=== PATIENT | female | born 1980 | race Caucasian/White ===

== ENCOUNTER 2016-10-25 11:56 | Emergency (ER) | payer OTHER ==
[2016-10-25] MEDS ORDERED: DILAUDID 1 MG/ML AMP ONE ×2 (12:28→14:06)
[2016-10-25] MEDS ORDERED: KETOROLAC 30 MG/ML VIAL ONE (12:28)
[2016-10-25] MEDS ORDERED: ORPHENADRINE 60 MG/2 ML AMP ONE (12:28)
[2016-10-25] MEDS ORDERED: ONDANSETRON 4 MG VIAL ONE (12:28)
== END 2016-10-25 14:57 | disposition home or self-care (01) ==
LOC: FASTR 11:56
DX: S39.012A Strain of muscle, fascia and tendon of lower back, initial encounter (principal); S29.012A Strain of muscle and tendon of back wall of thorax, initial encounter; W18.30XA Fall on same level, unspecified, initial encounter; Y93.E1 Activity, personal bathing and showering; Y92.002 Bathroom of unspecified non-institutional (private) residence as the place of occurrence of the external cause; S30.0XXA Contusion of lower back and pelvis, initial encounter; M51.34 Other intervertebral disc degeneration, thoracic region; Z79.3 Long term (current) use of hormonal contraceptives; F17.210 Nicotine dependence, cigarettes, uncomplicated
CPT/HCPCS: 72072 ×2; 72100 ×2; 72220 ×2; 96374 ×2; 96375 ×2; 96376 ×2; 99284; J1170; J1885; J2405